=== PATIENT | male | born 1985 | race Caucasian/White ===

== ENCOUNTER 2022-08-03 22:12 | Emergency (ER) | payer BC, MEDICAID, SELFPAY ==
[2022-08-03 22:18] VITALS: BP 158/96; PULSE 96; RESP 16; TEMP 36.4; O2SAT 96; BMI 20.7
--- NOTE | 2022-08-03 22:20 | XRR_ITS ---
PROCEDURE INFORMATION: Exam: XR Chest Exam date and time: 08/03/2022 11:05 PM Age: 37 years old Clinical indication: Condition or disease; Other: Heroin overdose; Additional info: Od TECHNIQUE: Imaging protocol: Radiologic exam of the chest. Views: 1 view. COMPARISON: No relevant prior studies available. FINDINGS: Lungs: Unremarkable. No consolidation. Pleural spaces: Unremarkable. No pleural effusion. No pneumothorax. Heart/Mediastinum: Unremarkable. No cardiomegaly. Bones/joints: Unremarkable for age. XR/XR chest 1V portable [id number] IMPRESSION: Negative chest exam.
--- NOTE | 2022-08-03 22:20 | ECG_ITS ---
[facility] Test Date: 2022-08-03 Pat Name: Greg Chang Department: Room: Gender: Male [employer]: : 1985 Requested By: Jan Goode Order Number: [id number] Halle MD: Charly Noriega M.D. Measurements Intervals [place] Rate: 90 P: 0 RI: 0 QRS: 73 QRSD: 100 T: 55 QT: 337 QTc: 414 Interpretive Statements Sinus rhythm with borderline first-degree AV block and PACs NONSPECIFIC T-WAVE ABNORMALITY ABNORMAL RHYTHM ECG No previous ECG available for comparison Electronically Signed On 08-05-2022 0:22:36 CDT by Charly Noriega M.D. [email or web address]
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
[2022-08-03 22:38] VITALS: O2SAT 94
[2022-08-03 22:43] LABS: Basophils % 0.2 %; Eosinophils % 0.1 %; Hemoglobin 13.7 g/dL (11.7-16.6); Lymphocytes # 1.2 10^3/uL (0.8-4.8); Lymphocytes % 6.4 %; Mean Corpuscular HGB Conc 34.3 g/dL (30.0-36.0); Mean Corpuscular Hemoglobin 32.8 pg (28.0-34.0); Mean Corpuscular Volume 95.7 fl (80-94); Monocytes % 5.5 %; Neutrophils # 16.23 10^3/uL (1.8-7.7); Neutrophils % 87.4 %; Nucleated Red Blood Cells % 0 %; Platelet Count 217 10^3/cmm (130-400); Red Blood Count 4.18 10^6/uL (4.1-5.3); Red Cell Distribution Width 11.8 % (12.1-15.1); White Blood Count 18.6 10^3/uL (4.0-10.0)
[2022-08-03] MEDS: acetaminophen 500 mg Tablet 1000 MG PO (22:44)
[2022-08-03 23:01] LABS: Alanine Aminotransferase 39 U/L (0-41); Albumin Level 4.3 g/dL (3.5-5.2); Alkaline Phosphatase 61 U/L (40-130); Anion Gap 16.3 (5-19); Aspartate Amino Transferase 31 U/L (0-40); Blood Urea Nitrogen 17 mg/dL (6-20); Calcium 9.1 mg/dL (8.5-10.5); Carbon Dioxide 26 mmol/L (22-29); Chloride 102 mmol/L (98-107); Globulin 2.5 g/dL (1.3-4.6); Glomerular Filtration Rate 61.8 mL/min (90-130); Glucose 183 mg/dL (65-115); Osmolality Calculated 296 mOsm/kg (285-295); Potassium 4.3 mmol/L (3.5-5.1); Sodium 140 mmol/L (136-145); Total Bilirubin 0.2 mg/dL (0.15-1.2); Total Protein 6.8 g/dL (6.6-8.7)
[2022-08-03 23:02] LABS: Acetaminophen < 5.0 ug/mL (10-30); Alcohol Level < 10 mg/dL (0-10); Salicylate < 0.3 mg/dL (3-10)
[2022-08-03] MEDS: neomycin-poly-bacitracin oint 28 gm 1 APPLIC TOPICAL (23:02)
[2022-08-03 23:22] VITALS: BP 143/89; PULSE 92; RESP 16; O2SAT 95
[2022-08-03] MEDS: ondansetron 2 mg/ML SDV 2 mL 4 MG IVP (23:38)
[2022-08-03 23:40] VITALS: BP 139/93; PULSE 92; RESP 16; O2SAT 94
[2022-08-03 23:56] VITALS: BP 126/86; RESP 16; O2SAT 91
[2022-08-04 00:17] VITALS: BP 138/90; PULSE 84; RESP 16; O2SAT 94
[2022-08-04 00:18] VITALS: BP 138/90; PULSE 84; RESP 16; TEMP 36.4; O2SAT 94
== END 2022-08-04 00:19 | disposition home or self-care (01) ==
PROVIDERS: Emergency Provider Emergency Medicine
DX: T40.1X1A Poisoning by heroin, accidental (unintentional), initial encounter (principal)
CPT/HCPCS: 71045; 80053; 80307; 85025; 93005; 96374; 99285; J2405

== ENCOUNTER → 2022-08-17 09:02 | Outpatient (BNVA) | payer BC, MEDICAID, SELFPAY | PROVIDERS: Visit Provider Podiatrist Foot & Ankle Surgery | DX: T25.222A Burn of second degree of left foot, initial encounter (principal); S90.122A Contusion of left lesser toe(s) without damage to nail, initial encounter; W22.03XA Walked into furniture, initial encounter; X16.XXXA Contact with hot heating appliances, radiators and pipes, initial encounter; F19.10 Other psychoactive substance abuse, uncomplicated | CPT/HCPCS: 73630 ==

== ENCOUNTER → 2022-09-02 11:57 | Outpatient (BNVA) | payer BC, MEDICAID, SELFPAY | PROVIDERS: Visit Provider Podiatrist Foot & Ankle Surgery | DX: T25.222A Burn of second degree of left foot, initial encounter (principal); W86.1XXA Exposure to industrial wiring, appliances and electrical machinery, initial encounter; F19.10 Other psychoactive substance abuse, uncomplicated | CPT/HCPCS: 73630 ==